=== PATIENT | female | born 1960 | race American Indian/Alaskan Native ===

== ENCOUNTER 2017-06-03 14:45 | Emergency (ER) | payer BC ==
[2017-06-03 15:02] VITALS: BMI 27.4
[2017-06-03 15:09] VITALS: BP 156/92; PULSE 82; TEMP 98.2
--- NOTE | 2017-06-03 15:14 | ED PDOC ---
Arrival/HPI - General Chief Complaint: Lower Extremity Problem/Injury Time Seen by Provider: 06/03/17 15:08 Historian: Patient - History of Present Illness Narrative History of Present Illness (Text): 06/03/17 15:08 57 y/o female, post menopausal, pmh including htn/dm, nkda, c/o lt. ankle/foot pain x 1 hour s/o twisted injury. Pt. stated that she was walking down the step , accidentally inversion injury to the lt. lateral foot and ankle, heard cracking sound, been having pain, painful to bear weight, no calf pain, no numbness or tingling, no palpitation, no night sweat, no other medical or psychological complaints. Past Medical History - Provider Review Nursing Documentation Reviewed: Yes - Infectious Disease Hx of Infectious Diseases: None - Reproductive Menopause: Yes - Cardiac Hx Cardiac Disorders: Yes Hx Hypertension: Yes - Pulmonary Hx Respiratory Disorders: Yes Hx Asthma: Yes - Neurological Hx Neurological Disorder: No - HEENT Hx HEENT Disorder: No - Endocrine/Metabolic Hx Endocrine Disorders: Yes Hx Diabetes Mellitus Type 2: Yes - Hematological/Oncological Hx Blood Disorders: No - Integumentary Hx Dermatological Disorder: No - Musculoskeletal/Rheumatological Hx Musculoskeletal Disorders: Yes Hx Falls: Yes (Last wednesday leg gave out 04/16/12) - Psychiatric Hx Depression: No Hx Emotional Abuse: No Hx Physical Abuse: No Hx Substance Use: Yes (marijuana) - Surgical History Hx Tubal Ligation: Yes - Anesthesia Hx Anesthesia: Yes Hx Anesthesia Reactions: No - Suicidal Assessment Feels Threatened In Home Enviroment: No Family/Social History - Physician Review Nursing Documentation Reviewed: Yes Family/Social History: Unknown Family HX Smoking Status: Current Some Days Smoker Hx Alcohol Use: Yes (Quit 4yrs ago) Hx Substance Use: Yes (marijuana) Hx Substance Use Treatment: Yes Allergies/Home Meds Allergies/Adverse Reactions: Allergies No Known Allergies Allergy (Verified 06/03/17 15:02) Home Medications: Home Meds Medication Instructions Recorded Confirmed Metformin Hydrochloride [Metformin] 1,000 mg PO DAILY 04/26/12 06/03/17 ALPRAZolam [Xanax] 2 mg PO DAILY 06/03/17 06/03/17 Aspirin [Adult Low Dose Aspirin EC] 1 tab PO DAILY 06/03/17 06/03/17 Felodipine [Plendil] 5 mg PO DAILY 06/03/17 06/03/17 Review of Systems - Review of Systems Constitutional: absent: Fatigue, Fevers Eyes: absent: Vision Changes ENT: absent: Hearing Changes Respiratory: absent: SOB, Cough Cardiovascular: absent: Chest Pain Gastrointestinal: absent: Abdominal Pain, Diarrhea, Nausea, Vomiting Musculoskeletal: Arthralgias, Myalgias. absent: Back Pain, Neck Pain, Joint Swelling Skin: absent: Rash, Pruritis, Skin Lesions Neurological: absent: Headache, Dizziness Physical Exam Vital Signs Reviewed: Yes Vital Signs Temp Pulse Resp BP Pulse Ox 06/03/17 15:06 98.2 F 82 19 156/92 H 98 Temperature: Afebrile Blood Pressure: Hypertensive Pulse: Regular Respiratory Rate: Normal Appearance: Positive for: Well-Appearing, Non-Toxic Pain Distress: Mild Mental Status: Positive for: Alert and Oriented X 3 - Systems Exam Head: Present: Atraumatic, Normocephalic Pupils: Present: PERRL Extroacular Muscles: Present: EOMI Conjunctiva: Present: Normal Mouth: Present: Moist Mucous Membranes Neck: Present: Normal Range of Motion Respiratory/Chest: Present: Clear to Auscultation, Good Air Exchange. No: Respiratory Distress, Accessory Muscle Use Cardiovascular: Present: Regular Rate and Rhythm, Normal S1, S2. No: Murmurs Abdomen: Present: Normal Bowel Sounds. No: Tenderness, Distention, Peritoneal Signs Back: Present: Normal Inspection Upper Extremity: Present: Normal Inspection. No: Cyanosis, Edema Lower Extremity: Present: Normal Inspection, Other (Lt. ankle/foot: +ttp on the lateral malleolus and lateral 5th base metatarsal region with mild swelling, skin intact, negative marisabel and montanez signs, FROM without limitation, sensation intact, motor 5/5, +DPPT pulses, capillary refill< 2 seconds, neurovascular intact. ). No: Edema Neurological: Present: GCS=15, Speech Normal, Motor Func Grossly Intact, Gait Normal, Memory Normal Skin: Present: Warm, Dry, Normal Color. No: Rashes Psychiatric: Present: Alert, Oriented x 3, Normal Insight, Normal Concentration Medical Decision Making ED Course and Treatment: 06/03/17 15:19 -Lt. ankle/foot xray -I offered pain medication and patient refused -Posterior splint applied by me with neurovascular intact due the patient has pain with the movement of the ankle/foot, crutches training provided by the BI[employer]QUIPMENT TECH/Jenniffer 06/03/17 16:09 -Discharge home with naproxen, crutches, posterior splint, ice compression, elevation, follow up with your own pmd and physical instructor within 2 days, return to the ER for any new or worsening signs or symptoms. - RAD Interpretation Radiology Orders: 06/03/17 15:14 ANKLE LEFT 3 VIEWS ROUTINE [RAD] Stat FOOT LEFT 3 VIEWS ROUTINE [RAD] Stat Lt. ankle: normal Lt. foot: small calcaneal spur, no acute findings. Life Guard: Radiologist - PA / SENIOR UI UX DESIGNER / Resident Statement MD/ has reviewed & agrees with the documentation as recorded. Disposition/Present on Arrival - Present on Arrival Any Indicators Present on Arrival: No History of DVT/PE: No History of Uncontrolled Diabetes: No Urinary Catheter: No History of Decub. Ulcer: No History Surgical Site Infection Following: None - Disposition Have Diagnosis and Disposition been Completed?: Yes Diagnosis: Injury of ankle and foot, Pain, joint, ankle and foot Disposition: HOME/ ROUTINE Disposition Time: 16:10 Patient Plan: Discharge Patient Problems: Current Active Problems Problem Status Onset Injury of ankle and foot Acute Pain, joint, ankle and foot Acute Condition: GOOD Additional Instructions: -Discharge home with naproxen, crutches, posterior splint, ice compression, elevation, follow up with your own pmd and physical instructor within 2 days, return to the ER for any new or worsening signs or symptoms. Prescriptions: Naproxen 500 mg PO BID PRN #20 tab PRN Reason: Other Referrals: Rashawn Mancuso MD [Primary Care Provider] - Follow up with primary Valdez Thompson MD [Staff Provider] - Follow up with primary Forms: Roamer (Japanese), WORK NOTE
--- NOTE | 2017-06-03 16:11 | RAD ---
PROCEDURE: Left Foot Radiographs. HISTORY: inversion injury, pain on lateral COMPARISON: None. FINDINGS: BONES: Normal. No fracture. JOINTS: Normal. SOFT TISSUES: Normal. OTHER FINDINGS: Small calcaneal spur IMPRESSION: No acute findings
--- NOTE | 2017-06-03 16:12 | RAD ---
PROCEDURE: Left Ankle Radiographs. HISTORY: inversion injury, pain on lateral COMPARISON: None FINDINGS: BONES: Normal. No fracture. JOINTS: Normal. No osteoarthritis. Ankle mortise maintained. Talar dome intact SOFT TISSUES: Normal. OTHER FINDINGS: None. IMPRESSION: Normal left ankle radiographs.
[2017-06-03 16:26] VITALS: RESP 18; O2SAT 99
== END 2017-06-03 16:26 | disposition home or self-care (01) ==
LOC: ED 14:45
DX: M25.572 Pain in left ankle and joints of left foot (principal); S99.912A Unspecified injury of left ankle, initial encounter; X50.1XXA Overexertion from prolonged static or awkward postures, initial encounter; Y93.01 Activity, walking, marching and hiking